=== PATIENT | female | born 1970 | race Caucasian/White ===

== ENCOUNTER → 2020-07-19 | Outpatient (CLI) | payer BC, OTHER ==
[~2020-07-19] MED LIST: LODINE CAP 300300 MG PO; NORCO 5-325 TA1 EACH PO; ZOFRAN ODT 4 MG4 MG PO
== END ==
LOC: EXRD 13:58
DX: Z13.820 Encounter for screening for osteoporosis (principal); N95.9 Unspecified menopausal and perimenopausal disorder; M85.852 Other specified disorders of bone density and structure, left thigh
CPT/HCPCS: 77080

== ENCOUNTER → 2020-08-09 | Outpatient (CLI) | payer BC, OTHER | LOC: KOH-I 08:58 | DX: S82.432D Displaced oblique fracture of shaft of left fibula, subsequent encounter for closed fracture with routine healing (principal); X58.XXXD Exposure to other specified factors, subsequent encounter | CPT/HCPCS: 73610 ==

== ENCOUNTER → 2020-09-06 | Outpatient (CLI) | payer BC, OTHER | LOC: KOH-I 09:06 | DX: S82.832D Other fracture of upper and lower end of left fibula, subsequent encounter for closed fracture with routine healing (principal) | CPT/HCPCS: 73610 ==

== ENCOUNTER → 2020-09-27 | Outpatient (CLI) | payer BC, OTHER | LOC: KOH-I 10:55 | DX: S82.832A Other fracture of upper and lower end of left fibula, initial encounter for closed fracture (principal) | CPT/HCPCS: 73610 ==

== ENCOUNTER → 2020-10-18 | Outpatient (CLI) | payer BC, OTHER | LOC: KOH-I 09:48 | DX: S82.832D Other fracture of upper and lower end of left fibula, subsequent encounter for closed fracture with routine healing (principal) | CPT/HCPCS: 73610 ==

== ENCOUNTER → 2021-01-20 | Outpatient (CLI) | payer BC, OTHER | LOC: KOH-I 10:52 | DX: S82.832A Other fracture of upper and lower end of left fibula, initial encounter for closed fracture (principal) | CPT/HCPCS: 73610 ==

== ENCOUNTER 2021-12-16 15:12 | Emergency (ER) | payer BC, OTHER ==
[2021-12-16] MEDS ORDERED: EPIPEN 2-P0.3 MG/0.3 INJ (16:50)
[2021-12-16] MEDS ORDERED: MEDROL DOSEPAK 24 MG PO (16:50)
[2021-12-16] MEDS ORDERED: BENADRYL ALLERG25 MG PO (16:50)
== END 2021-12-16 19:00 | disposition home or self-care (01) ==
LOC: ER1 15:12
DX: T63.441A Toxic effect of venom of bees, accidental (unintentional), initial encounter (principal); Z90.49 Acquired absence of other specified parts of digestive tract; Z90.710 Acquired absence of both cervix and uterus
CPT/HCPCS: 99282; J0171; J1200; J2405; J2930; J7030

== ENCOUNTER 2022-03-06 16:40 | Emergency (ER) | payer BC, OTHER ==
[~2022-03-06 16:40] MED LIST changes: +BENADRYL ALLERG25 MG PO; +EPIPEN 2-P0.3 MG/0.3 INJ; +MEDROL DOSEPAK 24 MG PO
[2022-03-06] MEDS ORDERED: PEPCID40 MG PO (18:53)
[2022-03-06] MEDS ORDERED: PREDNISONE 10 M10 MG PO (18:53)
== END 2022-03-06 19:20 | disposition home or self-care (01) ==
LOC: ER1 16:40
DX: T78.1XXA Other adverse food reactions, not elsewhere classified, initial encounter (principal); I10 Essential (primary) hypertension
CPT/HCPCS: 93005; 96374; 96375; 99283; J1200; J2930